=== PATIENT | male | born 1965 | race Caucasian/White ===

== ENCOUNTER → 2018-01-04 | Outpatient (CLI) | payer OTHER ==
--- NOTE | 2018-01-04 09:37 | DIAGNOSTIC IMAGING REPORT ---
ABDOMEN LIMITED (US) CLINICAL HISTORY: Left-sided ABDOMINAL DISCOMFORT COMPARISON STUDY: None. FINDINGS: Real-time sonographic imaging of the left abdomen was performed with area representative images submitted. No sonographic abnormality within the left abdominal wall/flank. The left spleen. Normal in size measuring 12 cm in length. No fluid collections or masses identified within the left abdominal wall. IMPRESSION: No sonographic abnormality within the left abdominal wall/flank at the patient's area of interest. Electronically signed by: Go Espino M.D. 01/04/2018 9:35 AM Dictated Date/Time: 01/04/2018 9:34 AM
== END | disposition home or self-care (01) ==
LOC: C.ULTR 08:51
PROVIDERS: ATTEND Family Medicine
DX: R10.9 Unspecified abdominal pain (principal)